=== PATIENT | female | born 1960 | race American Indian/Alaskan Native ===

== ENCOUNTER 2018-07-25 09:12 | Emergency (ER) | payer OTHER ==
[2018-07-25 09:28] VITALS: BP 120/80; PULSE 85; TEMP 97.7; BMI 22.2
--- NOTE | 2018-07-25 10:06 | PDOC ---
History of Present Illness - General Chief Complaint: Rash Stated Complaint: RASH Time Seen by Provider: 07/25/18 09:58 History Source: Patient Exam Limitations: No Limitations - History of Present Illness Initial Comments: 07/25/18 10:04 58 yr female with rash for 3 weeks is followed by dermatology , currently on hydrocortisone and bendaryl. Pt states the left lower leg is wheeping, has started scratching it now appears infected. 07/25/18 10:11 Past History - Past Medical History Allergies/Adverse Reactions: Allergies Allergy/AdvReac Type Severity Reaction Status Date / Time morphine Allergy Verified 07/25/18 09:21 Home Medications: Ambulatory Orders Cephalexin [Keflex] 250 mg PO QID #28 capsule 07/25/18 COPD: No - Immunization History Immunization Up to Date: Yes - Suicide/Smoking/Psychosocial Hx Smoking History: Never smoked Hx Alcohol Use: No Drug/Substance Use Hx: No Substance Use Type: None Review of Systems - Review of Systems Able to Perform ROS?: Yes Is the patient limited French proficient: No Constitutional: No: Symptoms Reported HEENTM: No: Symptoms Reported Respiratory: No: Symptoms reported Cardiac (ROS): No: Symptoms Reported ABD/GI: No: Symptoms Reported : No: Symptoms Reported Musculoskeletal: No: Symptoms Reported Integumentary: Yes: Symptoms Reported *Physical Exam - Vital Signs Last Vital Signs Temp Pulse Resp BP Pulse Ox 97.7 F 85 120/80 99 07/25/18 09:22 07/25/18 09:22 07/25/18 09:22 07/25/18 09:22 - Physical Exam General Appearance: Yes: Nourished, Appropriately Dressed HEENT: positive: EOMI, EVELINA, TMs Normal, Pharynx Normal Neck: positive: Supple Respiratory/Chest: positive: Lungs Clear, Normal Breath Sounds Cardiovascular: positive: Regular Rhythm, Regular Rate Gastrointestinal/Abdominal: positive: Normal Bowel Sounds, Soft Musculoskeletal: positive: Normal Inspection Extremity: positive: Normal Capillary Refill, Erythema, Inflammation (multiple areas arm,, abdomen with scattered dry crusted purple lesions ), Other (left lower leg with erythematous area, oozing, , no abscess) Neurologic: positive: efficiency expert II-XII NML intact, Fully Oriented, Alert, Normal Mood/ Affect Medical Decision Making - Medical Decision Making 07/25/18 11:04 cc: left lower leg with redness, swelling oozing fluid after pt scratches the area that was itchy no fever no DM pt being followed by her deramtologist has apt on this week will place on keflex for cellulitus pt aware she must see her PMD tomorrow as planned for further workup if the lesions, pt has had for 3-4 weeks come and go pt denies weight changes no resp symptoms 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/Admit/Observation/Transfer Diagnosis at time of Disposition: Cellulitis of skin - Discharge Dispostion Disposition: HOME Condition at time of disposition: Good - Prescriptions Prescriptions: Cephalexin [Keflex] 250 mg PO QID #28 capsule - Referrals Referrals: Radha Zhang MD [Primary Care Provider] - - Patient Instructions Additional Instructions: follow with the personalized living manager as scheduled take the antibiotic as directed for 7 days follow with your Primary care Tomorrow as planned return if any fever, chills vomiting or severe pain - Post Discharge Activity Forms/Work/School Notes: Back to Work
== END 2018-07-25 10:25 | disposition home or self-care (01) ==
LOC: JERFT 09:12
DX: L03.116 Cellulitis of left lower limb (principal)
CPT/HCPCS: 99281-25